=== PATIENT | female | born 1990 ===

== ENCOUNTER 2024-05-11 16:17 | Outpatient (CLI) | payer OTHER ==
[2024-05-11] MEDS ORDERED: GADOTERATE MEGLUMINE 7.5 MMOL/15 ML VIAL ONE (16:47)
[2024-05-11] MEDS: GADOTERATE MEGLUMINE 7.5 MMOL/15 ML VIAL IVP ONE (17:47)
--- NOTE | 2024-05-11 18:51 | MRI Report ---
PROCEDURE: Soft Tissue Neck W/WO INDICATIONS: ENLARGED LYMPH NODES CONTRAST: CLARISCAN 15 ML TECHNIQUE: Sagittal/axial/coronal T1 spin echo and STIR. After the administration of contrast, axial/coronal/sa gittal T1 fast spin echo with fat saturation through the neck. COMPARISON: None. FINDINGS: Lymph nodes: Prominent right level 2A lymph node measures 2.1 x 0.9 cm with preserved fatty dena. Sim ilar left level 2A node measures 0.7 x 2.3 cm. Right submandibular node measures 1.5 x 1.0 cm smaller scattered nodes noted in the deep cervical chains Vessels: Visualized vasculature appears normal, with carlos flow voids and enhancement. Neck spaces: The oropharynx, nasopharynx and pharynx are unremarkable, without mucosal lesions seen. Vocal cords, false vocal cords, pyriform sinuses, epiglottis, vallecula, and tongue base all appear normal. Extramucosal spaces of the neck also appear unremarkable. Glands: The parotid and submandibular glands appear normal. The thyroid is normal in size and there are no incidental findings. Miscellaneous: Visualized brain and orbits appear normal. Lung apices appear clear. Superficial so ft tissues appear normal. Mild right maxillary sinus mucosal thickening Bones: Marrow has normal overall signal. IMPRESSION: Prominent right level 2A lymph node maintains a fatty dena. Smaller left level 2A node. Consider clin ical follow-up to resolution. Reviewed by: Sky Coyne MD on 05/11/2024 5:49 PM DINO Approved by: Sky Coyne MD on 05/11/2024 5:49 PM [id number] Station ID: [id number]
== END 2024-05-11 16:18 | disposition home or self-care (01) ==
LOC: DI 16:17
PROVIDERS: ATTEND Student in an Organized Health Care Education/Training Program
DX: R59.0 Localized enlarged lymph nodes (principal)